=== PATIENT | male | born 1965 | race Caucasian/White ===

== ENCOUNTER 2020-10-27 04:39 | Emergency (ER) | payer OTHER, SELFPAY ==
--- NOTE | ~2020-10-27 | XR_ITS ---
EXAMINATION: XR HAND, RIGHT CLINICAL INFORMATION: Pain. COMPARISON: None TECHNIQUE: PA, lateral, and oblique views of the right hand. FINDINGS: Soft tissue swelling is most pronounced at the dorsal and medial aspects of the hand at the level of the metacarpal bones. 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 MCP joints appear relatively well-preserved with the exception of the first MCP joint. Bone mineralization is normal. The small finger PIP joint is flexed on all images. No radiodense foreign bodies. XR/XR hand RT min 3V IMPRESSION: Soft tissue swelling at the dorsal and medial aspect of the hand at the level of the metacarpals. No acute fractures are identified.
[2020-10-27 04:59] VITALS: BP 113/68; PULSE 77; RESP 16; TEMP 36.4; O2SAT 99; BMI 24.3
[2020-10-27] MEDS: Acetaminophen 325 MG TABLET PO (06:18)
[2020-10-27] MEDS: Ibuprofen 400 MG TABLET PO (06:18)
--- NOTE | 2020-10-27 06:21 | ED_ITS ---
HPI - Extremity Problem General Chief complaint: Extremity Injury, Upper Stated complaint: right hand injury Time Seen by Provider: 10/27/20 06:19 Source: patient Mode of arrival: ambulatory History of Present Illness HPI Narrative: this is a 54-year-old male without significant past medical history who presents with right hand pain and is right-hand dominant. 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 Otherwise, he denies any fevers or chills. Related Data Previous Rx's Medication Instructions Recorded amoxicillin-pot clavulanate 1 tab PO Q12H 7 Days #14 tab 10/27/20 [Augmentin] Allergies Allergy/AdvReac Type Severity Reaction Status Date / Time No Known Allergies Allergy Unverified 01/14/20 15:49 Seasonal Allergy Unknown red, itchy Uncoded 11/06/19 00:00 eyes, sinus congestion seasonal Allergy Unknown Uncoded 01/10/18 00:00 Review of Systems Review of Systems: Pertinent positives and negatives as stated in HPI 10 point review of systems is otherwise negative. PMFSH Past Medical History Source: nursing notes reviewed Medical History Surgical screw in right hand Surgical History History of hernia surgery Hx of tonsillectomy Social History Social History Advance Directives: No Advance Directives Information Provided: No Physical Exam Vital Signs: Vital Signs: Last Vital Signs Temp 97.6 F 10/27/20 04:59 Pulse 77 10/27/20 04:59 Resp 16 10/27/20 04:59 BP 113/68 10/27/20 04:59 Pulse Ox 99 10/27/20 04:59 Body Mass Index 24.3 VITAL SIGNS: Reviewed. GENERAL: Well developed, well nourished, in no acute distress. HEAD: Normocephalic/atraumatic EYES: PERRLA, EOMI OROPHARYNX: no oral lesions noted, posterior pharynx clear NECK: Supple, no adenopathy LUNGS: Normal breath sounds. No adventitious sounds or accessory muscle use. SpO2<99> CARDIOVASCULAR: Regular rate and rhythm without noted murmurs ABDOMEN: Soft, non-tender, non-distended with bowel sounds. RIGHT HAND WITH OBVIOUS ABSCESS TO THE DORSAL ASPECT, ERYTHEMA/INDURATION, CAPILLARY REFILL LESS THAN 3 SECONDS, RADIAL/ ULNAR PULSES PALPABLE SKIN: Inspection of the skin reveals no rashes NEUROLOGIC: Alert and oriented x 4. Course Course Course Narrative: 54-year-old male with history and clinical presentation consistent with abscess to the dorsum of hand on review of x-ray no evidence of foreign object, fracture, dislocation. Abscess was incision and drainage with good tolerance by the patient and he was also provided with combination analgesics as well as initial antibiotics. Procedures Abscess I/D Site: hand Side (if applicable): right Sedation/analgesia: none Technique: incised with blade Amount of fluid expressed (mL): 50 Sent for culture/gram staining?: No Irrigation: Yes Packing used?: none Complications: pain Discharge Plan Discharge Clinical Impression: Abscess of hand, right Patient Disposition: Home, Self-Care Instructions: Abscess Incision and Drainage (DC) Additional Instructions: 1. recommend [id number] Tylenol/ ibuprofen as needed for pain control. 2. recommend hand soaks at least once a day with warm water and [id number]-eyqgykc Epsom salts. 3. Follow-up with your primary care provider in the next 2-3 days for re- evaluation further outpatient management. Return to the ER for any acute worsening of symptoms. Prescriptions: New amoxicillin-pot clavulanate [Augmentin] 875-125 mg tablet 1 tab PO Q12H 7 Days Qty: 14 RF: 0 Referrals: Sylvia Burrows MD [Primary Care Provider] - 2 days ( re-evaluation after incision and drainage dorsum of right hand. Patient sent home with antibiotics.)
[2020-10-27] MEDS: Acetaminophen 325 MG TABLET 650 MG PO (06:25)
[2020-10-27] MEDS: Amoxicillin/Potassium Clav 875 MG TABLET PO (06:25)
== END 2020-10-27 06:36 | disposition home or self-care (01) ==
PROVIDERS: Emergency Provider Student in an Organized Health Care Education/Training Program; PCP Internal Medicine
DX: L02.511 Cutaneous abscess of right hand (principal)
CPT/HCPCS: 10060; 73130; 99283; 99284

== ENCOUNTER 2023-04-09 10:35 | Outpatient (AMB) | payer OTHER, SELFPAY ==
--- NOTE | 2023-04-09 10:42 | A.OFFPC_ITS ---
Vital Signs 04/09/23 10:43 Height 6 ft 4 in Weight 200 lb 2 oz BMI 24.4 BP 126/82 Blood Pressure Location Lt brachial Position Sitting Pulse 69 Pulse Source Pulse Oximeter Pulse Oximetry (%) 95 Oxygen Delivery Method Room Air Intake Visit Reasons: Cataract Surgery ~ Allergies No Known Allergies Allergy (Verified 04/09/23 10:45) Seasonal Allergy (Unknown, Uncoded 04/06/22 10:08) red, itchy eyes, sinus congestion Medication List - Last Reconciled 04/09/23 by Sylvia Burrows MD No Known Home Meds Tobacco use date assessed: 04/09/23 Dental Screening Dental Screen Date: 04/09/23 Did you have a dental visit in the last 12 months?: No Did you have a dental problem in the last 6 months where you did not have access to dental care?: No Was dental information given to patient?: Patient has dentist HPI Cataract Surgery ~ HPI Details Patient is a 57-year-old gentleman came in today to have preop clearance for cataract surgery Right eye on April [address] [facility] message uses Patient takes no medications however continued to smoke and have smoker's cough We should get a baseline blood test, patient agreed to that today. Order placed, to be done today He offers no complaints Patient is stable for cataract surgery [facility] Medical History Surgical screw in right hand Surgical History Hx of tonsillectomy History of hernia surgery Social History Housing: House Patient Tobacco Use Status: Current everyday Tobacco user Tobacco use type: Cigarette Cigarettes Per Day: 20 e-Cigarette/Vaping Use: Never Used Current occupational status: employed Cognitive needs: No Hearing needs: No Vision needs: Yes Questionnaire Thrive Questionnaire Date Thrive assessed: 04/06/22 NELL-7 AMB Questionnaire NELL-7 Date NELL - 7 assessed: 04/06/22 Source: Developed by Drs. Eriberto Garza, Mare Engel, Tereso Beltrán and colleagues, with an educational edwige from [employer]. Review of Systems Const Denies chills, Denies fever(s) and Denies headache(s) ENT Denies headache(s), Denies nasal discharge, Denies nasal obstruction, Denies odynophagia and Denies sinus pain Card Denies chest pain at rest and Denies chest pain with activity Resp Denies hemoptysis GI Denies diarrhea, Denies odynophagia, Denies vomiting and Denies hematemesis Reports as per HPI Musc Denies abnormal gait Skin/Breast Reports as per HPI Neuro Denies Neuro-related abnormal movements, Denies Abnormal speech present, Denies abnormal gait, Denies headache(s) and Denies Sensory deficit (Neuro) Psych Denies mood swings and Denies paranoia Endo Reports as per HPI Slava/Lymph Reports as per HPI Aller/Immun Reports as per HPI Physical exam (Primary Care) Vital Signs: Last Vital Signs Pulse 69 04/09/23 10:43 BP 126/82 04/09/23 10:43 Pulse Ox 95 04/09/23 10:43 Oxygen Delivery Method Room Air 04/09/23 10:43 BMI result Body Mass Index 24.4 Tobacco/Smoking Status: Tobacco use Status Tobacco use date assessed 04/09/23 04/09/23 10:46 Patient Tobacco Use Status Current everyday Tobacco 04/09/23 10:46 Tobacco use type Cigarette 04/09/23 10:46 e-Cigarette/Vaping Use Never Used 04/09/23 10:46 Thrive Assessment: Date of Thrive Assessment Date Thrive assessed 04/06/22 04/09/23 10:46 Const General: cooperative, comfortable and no acute distress Orientation/consciousness: patient oriented x3 [facility] Head: Yes normocephalic and Yes atraumatic Eyes General: appearance normal, both eyes and all related structures Pupils: Equal, round and reactive pupils present EOM: EOMs intact bilaterally Neck Neck: Yes supple and No lymphadenopathy Thyroid: Thyroid normal Lymphatic: no lymphadenopathy noted Resp Effort & Inspection: normal respiratory effort and able to speak in complete sentences Auscultation: clear to auscultation bilaterally Cardio Heart sounds: S1 normal heart sound present and S2 normal heart sound present GI Palpation (GI): Soft to palpation and nontender Auscultation: normal bowel sounds General: Yes no CVA tenderness Back/Spine/Pelvis Back: no CVA tenderness Skin General skin exam: elasticity normal and turgor normal Neuro General: patient oriented x3 and gait normal Cranial nerves: Yes Equal, round and reactive pupils present Speech: No Abnormal speech present Sensory Exam: No Sensory deficit (Neuro) Coordination: tandem gait normal and Romberg test negative Extrem General: Yes normal exam except as noted and No edema Assessment and Plan Assessment & Plan (1) Pre-op evaluation: Code(s): Z01.818 - Encounter for other preprocedural examination (2) Cataract: Code(s): H26.9 - Unspecified cataract Qualifiers: Cataract type: other Laterality: right Qualified Code(s): H26.8 - Other specified cataract (3) Smokers' cough: Code(s): J41.0 - Simple chronic bronchitis (4) Tobacco abuse: Code(s): Z72.0 - Tobacco use Plan Patient is a 57-year-old gentleman came in today to have preop clearance for cataract surgery Right eye on April [address] [facility] at [facility] message uses Patient takes no medications however continued to smoke and have smoker's cough We should get a baseline blood test, patient agreed to that today. Order placed, to be done today He offers no complaints Patient is stable for cataract surgery Orders: Orders Complete Blood Count Auto Diff Today H26.9 - Unspecified cataract, J41.0 - Simple chronic bronchitis, Z.818 - Encounter for other preprocedural examination, Z72.0 - Tobacco use Comprehensive Met. Panel Today H26.9 - Unspecified cataract, J41.0 - Simple chronic bronchitis, Z.818 - Encounter for other preprocedural examination, Z72.0 - Tobacco use Coding Level of Care Code Est Pt Level 4 (87355) Diagnoses Pre-op evaluation Z. Other cataract of right eye H26.8 Cataract type: other Laterality: right Smokers' cough J41.0 Tobacco abuse Z72.0
[2023-04-09 10:43] VITALS: BP 126/82; PULSE 69; O2SAT 95; BMI 24.4
== END 2023-04-09 12:39 | disposition home or self-care (01) ==
PROVIDERS: Visit Provider Internal Medicine
DX: Z01.818 Encounter for other preprocedural examination (principal); H26.8 Other specified cataract; J41.0 Simple chronic bronchitis; Z72.0 Tobacco use
CPT/HCPCS: 99214

== ENCOUNTER 2023-04-09 10:51 | Outpatient (REF) | payer OTHER, SELFPAY ==
[2023-04-09 13:44] LABS: MANUAL DIFF FLAG NO
[2023-04-09 14:01] LABS: Basophils Percent Auto 0.2 % (0-2); Eosinophils Absolute Auto 0.2 X10*3/uL (0.0-0.4); Eosinophils Percent Auto 3.1 % (0-4); Hemoglobin 12.7 g/dl (14.0-18.0); Imm Gran Abs Auto 0.02 X10*3/uL (0.00-0.03); Imm Gran Pct Auto 0.3 % (0.0-0.4); Lymphocytes Absolute Auto 1.5 X10*3/uL (1.2-4.9); Lymphocytes Percent Auto 24.6 % (20-40); Mean Corpuscular Hemoglobin 28.3 pg (27.0-33.0); Mean Corpuscular Volume 91.5 fL (80.0-98.0); Mean Platelet Volume 10.5 fL (9.4-12.4); Monocytes Absolute Auto 0.5 X10*3/uL (0.1-1.2); Monocytes Percent Auto 7.2 % (2-11); Neutrophils Percent Auto 64.6 % (45-73); Platelet Count 391 X10*3/uL (160-400); Red Blood Count 4.48 X10*6/uL (4.60-5.80); Red Cell Distribution Width 12.9 % (11.0-16.0); White Blood Count 6.2 X10*3/uL (4.8-10.8)
[2023-04-09 14:37] LABS: Alanine Aminotransferase 13 U/L (0-40); Albumin Level 3.8 g/dL (3.5-5.0); Alkaline Phosphatase 83 U/L (39-117); Anion Gap 13 (12-20); Aspartate Amino Transferase 16 U/L (5-37); Bilirubin Total 0.2 mg/dL (0.0-1.0); Blood Urea Nitrogen 14 mg/dL (9-16); Calcium 9.4 mg/dL (8.4-10.2); Carbon Dioxide 27 mmol/L (22-29); Chloride 105 mmol/L (96-108); Estimated Glomerular Filt Rate > 60; Glucose Random 94 mg/dL (60-115); Potassium 4.2 mmol/L (3.3-5.1); Sodium 141 mmol/L (135-145); Total Protein 7.3 g/dL (6.5-8.0)
== END 2023-04-09 10:52 | disposition home or self-care (01) ==
LOC: HO.HMGCLDS 10:51
PROVIDERS: PCP Internal Medicine; Visit Provider Internal Medicine
DX: Z01.818 Encounter for other preprocedural examination (principal); J41.0 Simple chronic bronchitis; H26.9 Unspecified cataract; Z72.0 Tobacco use
CPT/HCPCS: 36415; 80053; 85025

== ENCOUNTER 2024-12-09 13:27 | Outpatient (AMB) | payer OTHER, SELFPAY ==
--- NOTE | 2024-12-09 13:32 | A.OFFPC_ITS ---
Vital Signs 12/09/24 13:33 Height 6 ft 4 in Weight 222 lb BMI 27.0 BP 126/70 Blood Pressure Location Lt brachial Position Sitting Pulse 90 Pulse Source Pulse Oximeter Pulse Oximetry (%) 95 Intake Visit Reasons: Issues with a Lumb Allergies No Known Allergies Allergy (Verified 12/09/24 13:33) Seasonal Allergy (Unknown, Uncoded 04/06/22 10:08) red, itchy eyes, sinus congestion Medication List - Last Reconciled 12/09/24 by Sylvia Burrows MD No Known Home Meds Tobacco use date assessed: 12/09/24 Dental Screening Dental Screen Date: 12/09/24 Did you have a dental visit in the last 12 months?: Yes Did you have a dental problem in the last 6 months where you did not have access to dental care?: No Was dental information given to patient?: Patient has dentist HPI Issues with a Lumb HPI Details Chief Complaint The patient presents with numbness and burning in the toes and feet with progression over six months. History of Present Illness The patient is a 59-year-old male presenting with numbness and burning sensation in the feet. Neuropathy: - Persistent numbness and burning sensat ion in the toes, with symptoms progressively worsening over six months. - Initially localized to the toes but sierra s extended to the ankles over time. - Associated with a sensation of poundin g at the bottom of the feet, and curling of the toes. - The numbness and burning have signific antly impacted sleep, causing the patient to awaken hourly at night. - The patient reported difficulty with b alance and noted that the lack of sensation makes him feel outbalanced. - Previous regular jogging was ceased ap proximately six months ago due to injury from slipping on ice, impacting physical activity levels. Medical History: - History of alcohol consumption, report edly ceased in his 40s. - Past history of smoking, discontinued some time ago. Social History: - Alcohol consumption discontinued repor tedly in the patient's 40s after about a decade of use. - Former smoker, quit long ago. - Previous exercise routine included jog ging several hours per day, ceased due to a slip-related injury. - Currently not employed outside the [employer] but manages household tasks. Problem List - Peripheral Neuropathy Patient Instructions - Schedule and complete nerve conduction study as ordered. - Schedule and complete blood tests as o rdered, preferably before breakfast. - Consider use of a cane for added stabi lity and fall prevention. Review of Systems - General: No fever no chills - Neurological: No headaches no dizziness - Ear nose throat: No sore throat no hearing difficulty no ear pain - Cardiovascular: No syncope, no chest pain, no palpitations - Gastrointestinal: No nausea vomiting or diarrhea - Endocrine: No polyuria polydipsia no heat intolerance - Genitourinary: No dysuria , no blood in urine Physical Exam General: No acute distress HEENT: No acute findings Neck: Supple Respiratory system: Able to talk in full sentences, no audible wheeze Cardiovascular: S1-S2 regular in rate and rhythm Gastrointestinal: No pain Extremities: Numbness and burning sensation in feet, toes curling, decreased sensation noted 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 1. Little interest or pleasure in doing things: not at all 2. Feeling down, depressed, or hopeless: not at all 3. Trouble falling or staying asleep, or sleeping too much: nearly every day 4. Feeling tired or having little energy: several days 5. Poor appetite or overeating: not at all 6. Feeling bad about yourself - or that you are a failure or have let yourself or your family down: not at all 7. Trouble concentrating on things, such as reading the newspaper or watching television: not at all 8. Moving or speaking so slowly that other people could have noticed. Or the opposite - being so fidgety or restless that you have been moving around a lot more than usual: not at all 9. Thoughts that you would be better off or of hurting yourself in some way: not at all Total score: 4 Depression Screening Interpretation: Negative Depression Screening Done: Yes 96652 - PHQ-9 Billing: Yes Source: Developed by Drs. Eriberto Garza, Mare Engel, Tereso Beltrán and colleagues, with an educational edwige from [employer]. Thrive Questionnaire Date Thrive assessed: 12/09/24 I am a: Patient What is your living situation today?: I have a steady place to live Within the past 12 months, did the food you bought not last and you didn't have the money to get more?: Never true Within the past 12 months, did you worry whether your food would run out before you got money to buy more?: Never true Do you have trouble paying for medicines?: No Do you have trouble getting transportation to medical appointments?: Yes Do you have trouble paying your heating and electricity bill?: No Do you have trouble taking care of your child, family member or friend?: No Do you have trouble with day-to-day activities such as bathing, preparing meals, shopping, managing finances, etc.?: No Are you currently unemployed and looking for a job?: No Are you interested in more education?: No Please select the resources that you would like help with: None Currently or been in a relationship where the following occur: No concerns reported THRIVE Score: 1 AUDIT C Alcohol Use Questionnaire (AUDIT-C) 1. How often do you have a drink containing alcohol?: Monthly or less 2. How many drinks containing alcohol do you have on a typical day when you are drinking?: 1 or 2 3. How often do you have six or more drinks on one occasion?: Less than monthly Total Score: 2 Score Reviewed/Action Taken: Yes NELL-7 AMB Questionnaire NELL-7 Date NELL - 7 assessed: 12/09/24 Feeling nervous, anxious, or on edge: 0 = Not at all Not being able to stop or control worryin = Not at all Worrying too much about different things: 0 = Not at all Trouble relaxin = Not at all Being so restless that it is hard to sit still: 0 = Not at all Becoming easily annoyed or irritable: 0 = Not at all Feeling afraid as if something awful might happen: 0 = Not at all Total NELL-7 score (0-4 normal; 5-9 mild; 10-14 moderate; 15-21 severe): 0 Source: Developed by Drs. Eriberto Garza, Mare Engel, Tereso Beltrán and colleagues, with an educational edwige from [employer]. NELL-7 Assessment Billing NELL-7 Assessment Tool: NELL-7 Assessment 66101 Physical exam (Primary Care) Vital Signs: Last Vital Signs Pulse 90 12/09/24 13:33 BP 126/70 12/09/24 13:33 Pulse Ox 95 12/09/24 13:33 BMI result Body Mass Index 27.0 Tobacco/Smoking Status: Tobacco use Status Tobacco use date assessed 12/09/24 12/09/24 13:34 Patient Tobacco Use Status Current everyday Tobacco 12/09/24 13:34 Tobacco use type Cigarette 12/09/24 13:34 e-Cigarette/Vaping Use Never Used 12/09/24 13:34 PHQ-9: PHQ-9 Score PHQ-9: Total score 4 12/09/24 15:31 Depression Screening Interpretation: Negative Thrive Assessment: Date of Thrive Assessment Date Thrive assessed 12/09/24 12/09/24 13:34 Currently or been in a relationship where the following occur: No concerns reported Coding Level of Care Code Est Pt Level 3 (35241) Diagnoses Paresthesia of both feet R20.2 Additional Codes NELL-7 Assessment Billing - NELL-7 Assessment Tool: NELL-7 Assessment 34632 ([id number]) PHQ-9 - 31059 - PHQ-9 Billing: Yes ([id number]) Assessment & Plan Assessment & Plan (1) Paresthesia of both feet: Code(s): R20.2 - Paresthesia of skin Category: Medical Plan Chief Complaint The patient presents with numbness and burning in the toes and feet with progression over six months. History of Present Illness The patient is a 59-year-old male presenting with numbness and burning sensation in the feet. Neuropathy: - Persistent numbness and burning sensation in the toes, with symptoms progressively worsening over six months. - Initially localized to the toes but has extended to the ankles over time. - Associated with a sensation of pounding at the bottom of the feet, and curling of the toes. - The numbness and burning have significantly impacted sleep, causing the patient to awaken hourly at night. - The patient reported difficulty with balance and noted that the lack of sensation makes him feel outbalanced. - Previous regular jogging was ceased approximately six months ago due to injury from slipping on ice, impacting physical activity levels. Medical History: - History of alcohol consumption, reportedly ceased in his 40s. - Past history of smoking, discontinued some time ago. Social History: - Alcohol consumption discontinued reportedly in the patient's 40s after about a decade of use. - Former smoker, quit long ago. - Previous exercise routine included jogging several hours per day, ceased due to a slip-related injury. 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 Problem List - Peripheral Neuropathy Patient Instructions - Schedule and complete nerve conduction study as ordered. - Schedule and complete blood tests as ordered, preferably before breakfast. - Consider use of a cane for added stability and fall prevention. Orders: Orders Complete Blood Count Auto Diff Today R20.2 - Paresthesia of skin Vitamin B12 Today R20.2 - Paresthesia of skin NE nerve conduction velocity Today R20.2 - Paresthesia of skin NE electromyogram (EMG) Today R20.2 - Paresthesia of skin Comprehensive [place]. Panel Fast Today R20.2 - Paresthesia of skin Lipid Panel Today R20.2 - Paresthesia of skin Vitamin D 25-OH (D2 and D3) Today R20.2 - Paresthesia of skin TSH reflex Free T4 Today R20.2 - Paresthesia of skin
[2024-12-09 13:33] VITALS: BP 126/70; PULSE 90; O2SAT 95; BMI 27.0
== END 2024-12-09 14:02 | disposition home or self-care (01) ==
LOC: HO.HMCC 13:28
PROVIDERS: PCP Internal Medicine; Visit Provider Internal Medicine
DX: R20.2 Paresthesia of skin (principal)

== ENCOUNTER → 2024-12-09 13:27 | Outpatient (BNVA) | payer OTHER, SELFPAY | PROVIDERS: PCP Internal Medicine; Visit Provider Internal Medicine | DX: R20.0 Anesthesia of skin (principal); R20.2 Paresthesia of skin | CPT/HCPCS: 96127; 99212 ==

== ENCOUNTER 2024-12-10 12:07 | Outpatient (REF) | payer OTHER, SELFPAY ==
[2024-12-10 13:23] LABS: MANUAL DIFF FLAG NO
[2024-12-10 13:24] LABS: Hematocrit 45.5 % (42.0-52.0); Hemoglobin 14.9 g/dl (14.0-18.0); Imm Gran Abs Auto 0.03 X10*3/uL (0.00-0.03); Imm Gran Pct Auto 0.5 % (0.0-0.4); Lymphocytes Absolute Auto 1.9 X10*3/uL (1.2-4.9); Mean Corpuscular HGB Conc 32.7 g/dl (31.0-36.0); Mean Corpuscular Hemoglobin 30.8 pg (27.0-33.0); Mean Corpuscular Volume 94.0 fL (80.0-98.0); NRBC Abs Auto 0.000 X10*3/uL (0.0-0.012); NRBC Pct Auto 0.0 /100WBC (0.0-0.2); Platelet Count 584 X10*3/uL (160-400); Red Blood Count 4.84 X10*6/uL (4.60-5.80); White Blood Count 5.9 X10*3/uL (4.8-10.8)
[2024-12-10 13:47] LABS: Alanine Aminotransferase 72 U/L (0-40); Albumin Level 4.3 g/dL (3.5-5.0); Alkaline Phosphatase 69 U/L (39-117); Anion Gap 12 (12-20); Aspartate Amino Transferase 39 U/L (5-37); Blood Urea Nitrogen 19 mg/dL (9-16); Calcium 9.1 mg/dL (8.4-10.2); Carbon Dioxide 28 mmol/L (22-29); Chloride 108 mmol/L (96-108); Cholesterol 207 mg/dL (<200); Estimated Glomerular Filt Rate > 60; HDL Cholesterol 71 mg/dL (>40); Potassium 4.3 mmol/L (3.3-5.1); Sodium 144 mmol/L (135-145); Total Protein 6.8 g/dL (6.5-8.0); Triglycerides 45 mg/dL (<150)
[2024-12-10 14:07] LABS: Vitamin B12 395 pg/mL (200-900)
[2024-12-15 15:34] LABS: Vitamin D 25-OH, D2 <4 ng/mL; Vitamin D 25-OH, D3 15 ng/mL; Vitamin D 25-OH, Total 15 ng/mL (30-100)
== END 2024-12-10 12:08 | disposition home or self-care (01) ==
LOC: HO.HMGCLDS 12:07
PROVIDERS: PCP Internal Medicine; Visit Provider Internal Medicine
DX: R20.2 Paresthesia of skin (principal)
CPT/HCPCS: 36415; 80053; 80061; 82306; 82607; 84443; 85025

== ENCOUNTER 2024-12-31 06:49 | Outpatient (AMB) | payer OTHER, SELFPAY ==
--- NOTE | 2024-12-31 08:57 | A.OFFPC_ITS ---
Intake Visit Reasons: 3 week follow up, labs and EMG Allergies No Known Allergies Allergy (Verified 12/09/24 13:33) Seasonal Allergy (Unknown, Uncoded 04/06/22 10:08) red, itchy eyes, sinus congestion Medication List - Last Reconciled 12/31/24 by Sylvia Burrows MD No Known Home Meds Tobacco use date assessed: 12/09/24 Dental Screening Dental Screen Date: 12/09/24 HPI 3 week follow up, labs and EMG HPI Details Interval History The patient is a 59-year-old male presenting with liver enzyme abnormalities. Liver enzyme abnormalities: - The patient's liver enzymes have worse phillip since their previous visit on December 26. - The patient denies current alcohol con sumption and reports a past history of drinking years ago. Social History: - Reports past alcohol use which ceased years ago. Diagnostic Results: - Labs: Liver enzymes are elevated. Problem List - Liver enzyme abnormalities - Foot paraesthsia bilateral - Vitamin D deficiency - Low vitamin B12 levels Patient Instructions - Take vitamin D supplements as prescrib ed. - Start vitamin B12 supplements as instr ucted. - Follow up with an ultrasound of the li jackie as ordered. - Continue to await appointment [facility] for additional diagnostics. EMG nerve conduction lower ext Review of Systems - General: No fever no chills - Neurological: No headaches no dizziness - Ear nose throat: No sore throat no hearing difficulty no ear pain - Cardiovascular: No syncope, no chest pain, no palpitations - Gastrointestinal: No nausea vomiting or diarrhea - Endocrine: No polyuria polydipsia no heat intolerance - Genitourinary: No dysuria , no blood in urine PFSH Medical History Surgical screw in right hand Surgical History Hx of tonsillectomy History of hernia surgery Social History Housing: House Patient Tobacco Use Status: Current everyday Tobacco user Tobacco use type: Cigarette Cigarettes Per Day: 20 e-Cigarette/Vaping Use: Never Used Current occupational status: employed Cognitive needs: No Hearing needs: No Vision needs: Yes Questionnaire Thrive Questionnaire Date Thrive assessed: 12/09/24 I am a: Patient What is your living situation today?: I have a steady place to live Within the past 12 months, did the food you bought not last and you didn't have the money to get more?: Never true Within the past 12 months, did you worry whether your food would run out before you got money to buy more?: Never true Do you have trouble paying for medicines?: No Do you have trouble getting transportation to medical appointments?: Yes Do you have trouble paying your heating and electricity bill?: No Do you have trouble taking care of your child, family member or friend?: No Do you have trouble with day-to-day activities such as bathing, preparing meals, shopping, managing finances, etc.?: No Are you currently unemployed and looking for a job?: No Are you interested in more education?: No Please select the resources that you would like help with: None Currently or been in a relationship where the following occur: No concerns r eported THRIVE Score: 1 NELL-7 AMB Questionnaire NELL-7 Date NELL - 7 assessed: 12/09/24 Source: Developed by Drs. Eriberto Garza, Mare Engel, Tereso Beltrán and colleagues, with an educational edwige from [employer]. Physical exam (Primary Care) Tobacco/Smoking Status: Tobacco use Status Tobacco use date assessed 12/09/24 12/31/24 08:57 Patient Tobacco Use Status Current everyday Tobacco 12/31/24 08:57 Tobacco use type Cigarette 12/31/24 08:57 e-Cigarette/Vaping Use Never Used 12/31/24 08:57 Thrive Assessment: Date of Thrive Assessment Date Thrive assessed 12/09/24 12/31/24 08:57 Currently or been in a relationship where the following occur: No concerns reported Telehealth Telehealth Telehealth Platform: [facility] Location of provider rendering services: practice address Location of patient: address on file Patient Identification confirmed using: Name, : Yes Telehealth method: video (attempted) Patient verbally consented to treatment: Yes Patient verbally consented to billing insurance company: Yes Patient informed of any privacy concerns related to visit: Yes Minutes spent on Phone/Video with Pt.: 13 Coding Level of Care Code Tele Est Pt Level 3 (46728) Diagnoses LFT elevation R79.89 Paresthesia of both feet R20.2 Assessment & Plan Assessment & Plan (1) LFT elevation: Code(s): R79.89 - Other specified abnormal findings of blood chemistry Category: Medical (2) Paresthesia of both feet: Code(s): R20.2 - Paresthesia of skin Category: Medical Plan Interval History The patient is a 59-year-old male presenting with liver enzyme abnormalities. Liver enzyme abnormalities: - The patient's liver enzymes have worsened since their previous visit on December 26. - The patient denies current alcohol consumption and reports a past history of drinking years ago. Social History: - Reports past alcohol use which ceased years ago. Diagnostic Results: - Labs: Liver enzymes are elevated. Problem List - Liver enzyme abnormalities - Foot paraesthsia bilateral - Vitamin D deficiency - Low vitamin B12 levels Patient Instructions - Take vitamin D supplements as prescribed. - Start vitamin B12 supplements as instructed. - Follow up with an ultrasound of the liver as ordered. - Continue to await appointment scheduling for additional diagnostics. EMG nerve conduction lower ext Orders: Orders US abdomen limited Today R79.89 - Other specified abnormal findings of blood chemistry Medications: New cholecalciferol (vitamin D3) 1,250 mcg PO QWEEK 13 caps 0RF 90 days cyanocobalamin (vitamin B-12) 1,000 mcg PO DAILY 90 tabs 0RF 90 days
== END 2024-12-31 10:00 | disposition home or self-care (01) ==
LOC: HO.HMCC 06:50
PROVIDERS: PCP Internal Medicine; Visit Provider Internal Medicine
DX: R79.89 Other specified abnormal findings of blood chemistry (principal); R20.2 Paresthesia of skin